=== PATIENT | female | born 1950 | race Caucasian/White ===

== ENCOUNTER 2023-10-23 08:41 | Outpatient (RCR) | payer MEDICARE, OTHER, SELFPAY | END 2023-10-23 23:59 | disposition home or self-care (01) | LOC: RPT 08:41 | PROVIDERS: ATTENDING PHYSICIAN Family Medicine | DX: I97.2 Postmastectomy lymphedema syndrome (principal); Z73.6 Limitation of activities due to disability | CPT/HCPCS: 97140 ==

== ENCOUNTER 2023-11-20 11:45 | Outpatient (RCR) | payer MEDICARE, OTHER, SELFPAY | END 2023-11-20 23:59 | disposition home or self-care (01) | LOC: RPT 11:45 | PROVIDERS: ATTENDING PHYSICIAN Family Medicine | DX: I97.2 Postmastectomy lymphedema syndrome (principal); Z73.6 Limitation of activities due to disability | CPT/HCPCS: 97140 ==

== ENCOUNTER 2023-12-20 11:44 | Outpatient (RCR) | payer MEDICARE, OTHER, SELFPAY | END 2023-12-20 13:14 | disposition home or self-care (01) | LOC: RPT 11:44 | PROVIDERS: ATTENDING PHYSICIAN Family Medicine | DX: I97.2 Postmastectomy lymphedema syndrome (principal); Z73.6 Limitation of activities due to disability | CPT/HCPCS: 97140; 97535 ==

== ENCOUNTER → 2024-03-17 09:07 | Outpatient (REF) | payer MEDICARE, OTHER, SELFPAY | LOC: RAD 09:07 | PROVIDERS: ATTENDING PHYSICIAN Specialist; FAMILY PHYSICIAN Family Medicine | DX: M25.511 Pain in right shoulder (principal) | CPT/HCPCS: 73200 ==

== ENCOUNTER 2024-04-23 15:44 | Outpatient (RCR) | payer MEDICARE, OTHER, SELFPAY | END 2024-04-23 23:59 | disposition home or self-care (01) | LOC: RPT 15:44 | PROVIDERS: ATTENDING PHYSICIAN Specialist; FAMILY PHYSICIAN Family Medicine | DX: Z47.1 Aftercare following joint replacement surgery (principal); Z96.611 Presence of right artificial shoulder joint | CPT/HCPCS: 97110; 97140; 97161 ==

== ENCOUNTER 2024-05-25 08:42 | Outpatient (RCR) | payer MEDICARE, OTHER, SELFPAY | END 2024-05-25 23:59 | disposition home or self-care (01) | LOC: RPT 08:42 | PROVIDERS: ATTENDING PHYSICIAN Specialist; FAMILY PHYSICIAN Family Medicine | DX: Z73.6 Limitation of activities due to disability (principal); Z96.611 Presence of right artificial shoulder joint | CPT/HCPCS: 97010; 97110; 97140 ==

== ENCOUNTER 2024-06-10 14:41 | Outpatient (RCR) | payer MEDICARE, OTHER, SELFPAY | END 2024-06-11 06:35 | disposition home or self-care (01) | LOC: RPT 14:41 | PROVIDERS: ATTENDING PHYSICIAN Specialist; FAMILY PHYSICIAN Family Medicine | DX: M25.511 Pain in right shoulder (principal); Z96.611 Presence of right artificial shoulder joint; Z73.6 Limitation of activities due to disability | CPT/HCPCS: 97010; 97110; 97140 ==

== ENCOUNTER → 2024-06-20 09:39 | Outpatient (REF) | payer MEDICARE, OTHER, SELFPAY | LOC: RAD 09:39 | PROVIDERS: ATTENDING PHYSICIAN Physician Assistant Surgical; FAMILY PHYSICIAN Family Medicine | DX: M25.512 Pain in left shoulder (principal); Z96.612 Presence of left artificial shoulder joint | CPT/HCPCS: 73200 ==

== ENCOUNTER 2024-06-24 19:13 | Emergency (ER) | payer MEDICARE, OTHER, SELFPAY ==
[2024-06-24 19:18] VITALS: BP 143/62
[2024-06-24 19:41] LABS: % Basophils 0.8 % (0-2); % Eosinophils 1.1 % (0-6); % Immature Granulocytes 0.5 % (0-0.5); % Lymphocytes 21.4 % (20.5-51.1); % Monocytes 9.2 % (1.7-9.3); Absolute Basophils 0.1 10^3/uL (0-0.2); Absolute Eosinophils 0.1 10^3/uL (0-0.7); Absolute Lymphocytes 1.8 10^3/uL (1.2-3.4); Absolute Monocytes 0.8 10^3/uL (0.1-0.6); Absolute Neutrophils 5.7 10^3/uL (1.4-6.5); Hematocrit 38.7 % (37.0-47.0); Hemoglobin 13.8 g/dL (12.0-16.0); Mean Corp Hgb Conc. 35.7 g/dL (33.0-37.0); Mean Corpuscular Hgb 29.8 pg (27.0-31.0); Mean Corpuscular Volume 83.6 fL (81.0-99.0); Mean Platelet Volume 9.3 fL (7.4-10.4); Nucleated Red Blood Cells % 0 %; Platelet Count 328 10^3/uL (130-400); Red Blood Cell Count 4.63 10^6/uL (4.20-5.40); Red Cell Dist. Width 12.3 % (11.5-14.5); White Blood Cell Count 8.5 10^3/uL (4.8-10.8)
[2024-06-24 20:05] LABS: Troponin I < 0.012 ng/ml
[2024-06-24 20:22] LABS: ALT (SGPT) 14 U/L (0-35); AST (SGOT) 25 U/L (14-36); Albumin 4.8 g/dl (3.5-5.0); Alkaline Phosphatase 65 U/L (38-126); Blood Urea Nitrogen 15 mg/dl (7-17); Calcium 9.9 mg/dl (8.4-10.2); Carbon Dioxide 19 mmol/L (22-30); Chloride 102 mmol/L (98-107); Glucose 120 mg/dl (70-99); Potassium 4.3 mmol/L (3.5-5.1); Sodium 138 mmol/L (135-145); Total Bilirubin 0.6 mg/dl (0.2-1.3); Total Protein 7.2 g/dl (6.3-8.2); eGFR > 60.00
--- NOTE | 2024-06-24 22:41 | ED.GENMED ---
History of Present Illness
General
Chief Complaint: Blood Pressure Problem
Source: patient
Exam Limitations: none
Time Seen by Provider: 06/24/24 22:06
History of Present Illness
History of Present Illness:
This is a 74 year old female that comes in with c/o headache. States that all day she felt like her BP was elevated. Sates that it was 181 over 100 and something.States that she takes Diltiazem and today she started to feel dizzy at 5pm. States
that she was out yesterday for lunch and she felt her Food was very salty. States that she is always SOB and that she has a headache across her forehead. States that she feels lightheaded at this time but is not spinning. Denies any fever, chills,
chest pain, abd pain, nausea, vomiting, diarrhea, urinary burning.
Past History
Past History
ED Past Medical History: GERD, HTN and Other (Back and neck pain, Numbness arms and legs, Chronic cough since chemo. )
ED Past Surgical History: Orthopedic (Right and left shoulder replacement, Hip replacement and knee replacements. ) and Other (Cataracts, Left mastectomy with lymph node dissection, Deviated septum. )
Social History
Tobacco: Non-smoker
Alcohol: None
Personal:
Living: alone
Review of Systems
Review of Systems
All Other Systems: ROS reviewed and negative except as documented in HPI and ROS
Constitutional: Reports no symptoms; Denies fever or chills
EENT: Reports no symptoms
Respiratory: Reports cough (Chronic cough) and trouble breathing (always slightly SOB)
Cardiac: Reports no symptoms; Denies chest pain
ABD/GI: Reports no symptoms; Denies abdominal pain, nausea, vomiting or diarrhea
: Reports no symptoms; Denies dysuria, frequency or urgency
Musculoskeletal: Reports no symptoms
Skin: Reports no symptoms
Neurological: Reports headache and other (Lightheaded)
Psychiatric: Reports no symptoms
Phy Exam
General Physical Exam
General Presentation: well appearing and no apparent distress
General age: appears stated age
General Skin: warm and dry
General Habitus: elderly
General Mental: alert
General Hydration: appears well hydrated
ENT Exam
ENT Exam: TM's normal, pharynx normal and neck supple
Eye Exam
Eye Exam: EOMI
Cardiovascular Exam
Cardiovascular Exam: regular rate/rhythm, no edema and normal peripheral pulses
Pulmonary Exam
Pulmonary Exam: lungs clear, no respiratory distress, no rales, chest non tender, no crackles, no rhonchi, no wheezing and no cough
Gastrointestinal Exam
Gastrointestinal Exam: normal bowel sounds, non tender, soft, no organomegaly, no pulsatile mass and non distended
Musculoskeletal Exam
Musculoskeletal Exam: full ROM and no edema
Skin Exam
Skin Exam: normal color, warm/dry, no rash and no petechia
Psychiatric Exam
Psychiatric Exam: normal mood/affect
Course
Orders/Labs/Results
Orders:
Orders
06/24/24 19:15
ECG [Electrocardiogram (*1)] Urgent
Reason for Study: Vertigo / Dizzy
EKG- Treatment ONCE
06/24/24 19:34
Complete Blood Count/With Diff Urgent
Comprehensive Metabolic Panel Urgent
Troponin I Urgent
06/24/24 22:34
CT Head W/o Iv Contrast Urgent
Comment:
Reason For Exam: dizziness, headache
06/24/24 22:35
Acetaminophen [Tylenol] 1,000 mg PO NOW STA
06/24/24 22:45
Urinalysis Reflex To Culture Urgent
Date Specimen was Collected: 06/24/24
Time Specimen was Collected: 22:41
Urine Microscopic Reflex Cult Urgent
Urine Culture Urgent
CAROLE Source: U
Specimen Description:
Date Specimen was Collected: 06/24/24
Time Specimen was Collected: 22:41
Abnormal Lab Results
06/24/24 06/24/24
19:34 22:45
Absolute Monos (auto) 0.8 H 10^3/uL
(0.1-0.6)
Carbon Dioxide 19 L mmol/L
(22-30)
Glucose 120 H mg/dl
(70-99)
Urine Ketones 3+ A
(Negative)
Urine Bilirubin 1+ A
(Negative)
Leukocyte Esterase Rfl 1+ A
(Negative)
Urine Bacteria (Reflex) Few A
(Negative)
06/24/24 19:34
06/24/24 19:34
Carbon dioxide slighlty low. hyperglycemia Troponin <0.012, Urine negative.
Vital Signs
Initial and Last Documented VS:
Initial Vital Signs
Temp Pulse Resp BP Pulse Ox
98 F 70 16 143/62 99
06/24/24 19:18 06/24/24 19:18 06/24/24 19:18 06/24/24 19:18 06/24/24 19:18
Last Documented Vital Signs
Temp Pulse Resp BP Pulse Ox
98 F 71 16 128/57 98
06/24/24 19:18 06/24/24 22:44 06/24/24 22:44 06/24/24 23:00 06/24/24 22:44
MDM/Problems Addressed
Differential Diagnosis Includes:
Anxiety, Headache
MDM/Problems Addressed:
This is a 74 year old female that comes in with c/o dizziness and a headache. States that her BP was elevated today and that she had a very salty meal yesterday. States that she has a headache across her forehead.
Will check labs. CT head and urine
Back into see patient. States that she is feeling better and her headache is gone. States that she just wants to go home and not have the CT scan. Will discharge home.
Chronic conditions affecting care:
NA
Acute Exacerbation and/or Progression of Chronic Illness:
NA
*Pulse Oximetry
Patient hypoxic: no
*EKG
Interpreted by ED Provider?: Yes
Heart Rate: 68
Rate: normal
Rhythm: sinus
Metz: normal axis
Interval: normal interval
QRS Pattern: normal QRS
Ischemia: no ischemia
*Hat Brim Curler Interpretation
Rate: Hat Brim Curler- N/A
*Critical Care Note
Total Time (30-74mins, 75-104mins- exclusive of procedures): Not Applicable
ED Attending Note
-
Portions of this chart may have been created with voice recognition software.� Occasional wrong word or��sound alike� substitutions may have occurred due to the inherent limitations of voice recognition software.
Discharge Plan
Departure
Patient Disposition: Home (Routine Discharge)
Date of Disposition: 06/25/24
Time of Disposition: 00:14
Patient with high blood pressure during this ER visit?: No
Condition: Good
Covid-19: Not Applicable
Discharge Problem:
Headache
Instructions: Headache, Adult ED
Prescriptions:
No Action
multivitamin [One Daily Multivitamin] 1 EACH tablet
1 ea PO DAILY
trazodone 100 mg Tablet
200 mg PO HS PRN (Reason: insomnia)
omeprazole 20 mg Tablet,Delayed Release (Dr/Ec)
20 mg PO DAILYPRN PRN (Reason: REFLUX)
calcium carbonate 500 mg calcium (1,250 mg) Tablet
500 mg PO DAILY
acetaminophen [Tylenol] 325 mg capsule
650 mg PO QID PRN (Reason: pain) Qty: 2 0RF
diltiazem HCl 240 mg Tablet Extended Release 24 Hr
240 mg PO DAILY
sennosides [Senokot] 8.6 mg tablet
8.6 mg PO PRN PRN (Reason: constipation)
cyclosporine [Restasis] 0.05 % Dropperette
1 drp OPHTHALMIC (EYE) Q12H
Referrals:
Elliott Morris MD [Family Provider] - Follow up in 2-3 days
Activity Restrictions/Additional Instructions:
As discussed, your blood work was normal. Your urine is negative for infection. Please use Tylenol 1000mg every 6 hours for any headache pain. Watch your sodium intake and take your Blood pressure medication as directed. Follow up with the family
doctor for recheck. IF YOU HAVE ANY OTHER CONCERNS PLEASE RETURN TO THE EMERGENCY ROOM.
Interventions
Interventions:
*Risk Screen - Suicide Last Done: 06/24/24 19:18
*General Assessment Last Done: 06/24/24 22:50
*Neglect/Abuse Screening Last Done: 06/24/24 19:18
ED- Cardiac Assessment Last Done: 06/24/24 22:50
ED- Neurological Assessment Last Done: 06/24/24 22:50
ED- Pulmonary Assessment Last Done: 06/24/24 22:50
Discharge Date and Time
Print Language: KOREAN
[2024-06-24 22:44] VITALS: BP 139/60
[2024-06-24] MEDS: TYLENOL 1000 MG PO (22:47)
[2024-06-24 22:52] LABS: Urine Albumin Trace (Neg - Trace); Urine Bilirubin 1+ (Negative); Urine Character Clear (Clear); Urine Color Yellow; Urine Glucose Negative (Negative); Urine Ketone 3+ (Negative); Urine Leukocyte 1+ (Negative); Urine Nitrite Negative (Negative); Urine Occult Blood Negative (Negative); Urine Urobilinogen Negative (Neg - 1+)
[2024-06-24 22:57] LABS: Urine Mucus Many
[2024-06-24 22:58] LABS: Urine Bacteria Few (Negative); Urine Red Blood Cell 0-2 /HPF (0-2)
[2024-06-24 23:00] VITALS: BP 128/57
== END 2024-06-25 00:22 | disposition home or self-care (01) ==
LOC: EMR 19:13
PROVIDERS: Clinical Nurse Specialist Family Health; Emergency Medicine; EMERGENCY PHYSICIAN Emergency Medicine; FAMILY PHYSICIAN Family Medicine
DX: R51.9 Headache, unspecified (principal); I10 Essential (primary) hypertension; K21.9 Gastro-esophageal reflux disease without esophagitis; Z90.12 Acquired absence of left breast and nipple
CPT/HCPCS: 99284; 80053; 81003; 81015; 84484; 85025; 87086; 93005

== ENCOUNTER 2025-06-18 09:09 | Outpatient (RCR) | payer MEDICARE, OTHER, SELFPAY | END 2025-06-18 23:59 | disposition home or self-care (01) | LOC: RPT 09:09 | PROVIDERS: ATTENDING PHYSICIAN Physician Assistant Medical; FAMILY PHYSICIAN Family Medicine | DX: M51.361 Other intervertebral disc degeneration, lumbar region with lower extremity pain only (principal); Z73.6 Limitation of activities due to disability; M54.50 Low back pain, unspecified | CPT/HCPCS: 97010; 97110; 97162 ==

== ENCOUNTER → 2025-07-09 07:01 | Outpatient (REF) | payer MEDICARE, OTHER, SELFPAY | LOC: RAD 07:01 | PROVIDERS: ATTENDING PHYSICIAN Family Medicine | DX: M54.16 Radiculopathy, lumbar region (principal) | CPT/HCPCS: 72110 ==